=== PATIENT | male | born 1975 | race Caucasian/White ===

== ENCOUNTER 2017-11-03 13:34 | Emergency (ER) | payer SELFPAY ==
[~2017-11-03] VITALS: Ht 177.8 cm; Wt 90.7 kg
[2017-11-03 13:37] VITALS: Ht 177.8 cm; Wt 90.7 kg
[2017-11-03 14:19] LABS: BASOPHIL % 0.4 % (0-2); PLATELET COUNT 245 x10^3mcL (130-400); RED CELL DISTRIBUTION WIDTH 12.6 % (11.5-14.5)
[2017-11-03 14:30] LABS: CALCIUM 9.1 mg/dL (8.5-10.1); CARBON DIOXIDE 29.3 mmol/L (21-32); CHLORIDE SERUM 102 mmol/L (98-107); CREATININE SERUM 1.2 mg/dL (0.7-1.3); GFR1 > 60 mL/min; GLUCOSE SERUM 143 mg/dL (74-106); POTASSIUM SERUM 3.7 mmol/L (3.5-5.1); SODIUM SERUM 137 mmol/L (136-145)
[2017-11-03 14:44] LABS: ALBUMIN 4.2 g/dL (3.4-5.0); ALKALINE PHOSPHATASE 97 U/L (46-116); ALT/SGPT 78 U/L (16-63); AST/SGOT 49 U/L (15-37); BILIRUBIN TOTAL 1.5 mg/dL (0.20-1.00)
[2017-11-03 17:17] VITALS: BP 122/67
== END 2017-11-03 17:17 | disposition home or self-care (01) ==
LOC: ED 13:34
PROVIDERS: Specialist
DX: S01.01XA Laceration without foreign body of scalp, initial encounter (principal); S16.1XXA Strain of muscle, fascia and tendon at neck level, initial encounter; S29.012A Strain of muscle and tendon of back wall of thorax, initial encounter; S39.012A Strain of muscle, fascia and tendon of lower back, initial encounter; S93.501A Unspecified sprain of right great toe, initial encounter; S80.812A Abrasion, left lower leg, initial encounter; S09.90XA Unspecified injury of head, initial encounter; M25.531 Pain in right wrist; M25.561 Pain in right knee; W17.89XA Other fall from one level to another, initial encounter; Y93.89 Activity, other specified; Y92.89 Other specified places as the place of occurrence of the external cause; Y99.8 Other external cause status
CPT/HCPCS: 90715; J0780; J3010; J7030; Q0092; Q9967